=== PATIENT | female | born 1930 | race Caucasian/White ===

== ENCOUNTER 2018-06-10 17:42 | Emergency (ER) | payer OTHER ==
--- NOTE | 2018-06-10 18:15 | PDOC ---
Rapid Medical Evaluation Chief Complaint: Injury Time Seen by Provider: 06/10/18 18:11 Medical Evaluation: Allergies Allergy/AdvReac Type Severity Reaction Status Date / Time No Known Allergies Allergy Verified 10/14/13 20:56 06/10/18 18:13 I have performed a brief in-person evaluation of this patient. The patient presents with a CC of: Fall HPI: Pt is a 87 YO female who states that she accidentally fell and now has left hand, left rib, left knee and left tib/fib pain. Denies hitting her head and denies neck or back pain. Pertinent PE: Skin: Clear Lungs: Clear Heart: RRR Abd: Soft nontender MS. Pain to left right, left hand, left knee and tib/fib Neuro: Alert Psych: Age appropriate. I have ordered the following: xray on the above. The patient will proceed to main ED for further evaluation. Discharge Disposition - Diagnosis Pain - Referrals - Patient Instructions - Post Discharge Activity
[2018-06-10 18:18] VITALS: BMI 39.6
--- NOTE | 2018-06-10 19:29 | PDOC ---
History of Present Illness - General Chief Complaint: Injury Stated Complaint: FALL/INJURY Time Seen by Provider: 06/10/18 18:11 - History of Present Illness Initial Comments: 06/10/18 19:28 Ms. Christian is an 87 yo female w/ pmh of COPD, HLD, and HTN who presents s/p fall earlier today. Patient currently complaining of left hand, rib, knee, and tib/fib pain. Patient reports she got out of the car and attempted to use a sign to leverage herself forward however did not realized it was not secured in place. She fell backwards into still parked car on her left side. Denies hitting her head or any LOC. The patient denies chest pain, shortness of breath, headache and dizziness. Denies fever, chills, nausea, vomit, diarrhea and constipation. Denies dysuria, frequency, urgency and hematuria. Past History - Past Medical History Allergies/Adverse Reactions: Allergies Allergy/AdvReac Type Severity Reaction Status Date / Time No Known Allergies Allergy Verified 06/10/18 18:12 Home Medications: Ambulatory Orders Amlodipine Besylate [Norvasc -] 5 mg PO DAILY 10/14/13 Atorvastatin Ca [Lipitor] 10 mg PO HS 10/14/13 Albuterol 2.5/Ipratropium 0.5 [Duoneb -] 1 [facility] QIDR #0 vial 10/22/13 Aspirin [ASA -] 81 mg PO DAILY #0 tab.chew 10/22/13 Docusate Sodium [Colace -] 100 mg PO BID #0 capsule 10/22/13 Sennosides [Senna -] 5 tab PO DAILY #0 tablet 10/22/13 COPD: Yes HTN: Yes - Surgical History Abdominal Surgery: Yes (HERNIA REPAIR) - Immunization History Immunization Up to Date: Yes - Suicide/Smoking/Psychosocial Hx Smoking History: Never smoked Have you smoked in the past 12 months: No Hx Alcohol Use: No Drug/Substance Use Hx: No Substance Use Type: None Review of Systems - Review of Systems Comments:: 06/10/18 20:14 GENERAL/CONSTITUTIONAL: No fever or chills. No weakness. HEAD, EYES, EARS, NOSE AND THROAT: No change in vision. No ear pain or discharge. No sore throat. CARDIOVASCULAR: No chest pain or shortness of breath RESPIRATORY: No cough, wheezing, or hemoptysis. GASTROINTESTINAL: No nausea, vomiting, diarrhea or constipation. GENITOURINARY: No dysuria, frequency, or change in urination. MUSCULOSKELETAL: +MSK pain as described. SKIN: No rash NEUROLOGIC: No headache, vertigo, loss of consciousness, or change in strength/ sensation. ENDOCRINE: No increased thirst. No abnormal weight change HEMATOLOGIC/LYMPHATIC: No anemia, easy bleeding, or history of blood clots. ALLERGIC/IMMUNOLOGIC: No hives or skin allergy. *Physical Exam - Vital Signs Last Vital Signs Temp Pulse Resp BP Pulse Ox 98.6 F 93 H 19 168/66 96 06/10/18 18:12 06/10/18 18:12 06/10/18 18:12 06/10/18 18:12 06/10/18 18:12 - Physical Exam Comments: 06/10/18 20:14 GENERAL: Awake, alert, and fully oriented, in no acute distress HEAD: No signs of trauma, normocephalic, atraumatic EYES: PERRLA, EOMI, sclera anicteric, conjunctiva clear ENT: Auricles normal inspection, hearing grossly normal, nares patent, oropharynx clear without exudates. Moist mucosa NECK: Normal ROM, supple, no lymphadenopathy, JVD, or masses LUNGS: No distress, speaks full sentences, clear to auscultation bilaterally HEART: Regular rate and rhythm, normal S1 and S2, no murmurs, rubs or gallops, peripheral pulses normal and equal bilaterally. ABDOMEN: Soft, nontender, normoactive bowel sounds. No guarding, no rebound. No masses EXTREMITIES: +TTP of Left knee and left outside ribs. Moderate swelling noted to left knee. No deformities appreciated. Normal range of motion, normal strength. No clubbing or cyanosis. NEUROLOGICAL: Cranial nerves II through XII grossly intact. Normal speech, normal gait, no focal sensorimotor deficits SKIN: Warm, Dry, normal turgor, no rashes or lesions noted. Moderate Sedation - Procedure Monitoring Vital Signs: Procedure Monitoring Vital Signs Temperature 98.6 F 06/10/18 18:12 Pulse Rate 93 H 06/10/18 18:12 Respiratory Rate 19 06/10/18 18:12 Blood Pressure 168/66 06/10/18 18:12 O2 Sat by Pulse Oximetry (%) 96 06/10/18 18:12 Medical Decision Making - Medical Decision Making 06/10/18 20:29 Ms. Christian is an 87 yo female w/ pmh as described who presents for evaluation s /p fall as described earlier today. Patient currently awake and oriented. Received XR's of painful extremities and requested tylenol for pain only (given) . Discussed with patient that Head / C-spine CT's would be beneficial for ruling out further acute process. Patient refused any/all CT scan at this time. Given history confirmed by family who is with her no concern for contributing factors to fall as patient remained alert and oriented throughout encounter and fall was purely mechanical. Patient currently resting comfortably and would like to go home. *DC/Admit/Observation/Transfer Diagnosis at time of Disposition: Pain - Referrals Referrals: Jonh Anna MD [Primary Care Provider] - - Patient Instructions Printed Discharge Instructions: How to Prevent Falls Additional Instructions: You were evaluated today in the emergency room after your fall. We took x-rays of your injured extremities and no concerning findings were found at this time. We discussed Head CT for further evaluation however you elected to decline further testing. Please follow-up with primary care provider in 1-2 days for further evaluation. Return to ER if any increase in pain, fever, chills, altered mental status, or other concerning symptoms. We hope you feel better soon! - Post Discharge Activity
[2018-06-10] MEDS ORDERED: ACETAMINOPHEN 500 MG TABLET (FP) PO ONE (19:51)
[2018-06-10] MEDS ORDERED: ACETAMINOPHEN 325 MG TABLET (FP) ONE (20:06)
[2018-06-10 21:27] VITALS: BP 164/78; PULSE 97; TEMP 97.7
--- NOTE | 2018-06-10 21:28 | PDOC ---
Attending Attestation - Resident Resident Name: Fidel Allen - ED Attending Attestation I have performed the following: I have examined & evaluated the patient, The case was reviewed & discussed with the resident, I agree w/resident's findings & plan, Exceptions are as noted - HPI HPI: 06/10/18 21:21 87yo F hx COPD, HLD, and HTN presents to the ED after a fall. Pt was getting out of her daughter's vehicle and climbing up the curb. She reached for a post she thought was stationary but wasn't and fell onto her L ribs, L hand and L knee, striking them on the curb. She reports previous pain over her ribs and hand has significantly improved with tylenol. Denies head strike or LOC. Denies other injuries. Has no pain when taking a deep breath. Denies CP, SOB, fevers, chills, dizziness, abd pain, N/V/D, focal weakness or numbness, head/neck pain. Pt takes baby aspirin daily. - Physicial Exam PE: 06/10/18 21:24 GENERAL: Awake, alert, and fully oriented, in no acute distress. Ambulating around the ED with steady gait asking to go home HEAD: No signs of trauma EYES: PERRLA, EOMI, sclera anicteric, conjunctiva clear ENT: Auricles normal inspection, slightly hearing impaired, nares patent, oropharynx clear without exudates. Moist mucosa NECK: Normal ROM, supple, no lymphadenopathy, JVD, or masses LUNGS: Breath sounds equal, clear to auscultation bilaterally. No wheezes, and no crackles. L anterior 8-9th rib with ttp, no crepitus or deformity HEART: Regular rate and rhythm, normal S1 and S2, no murmurs, rubs or gallops ABDOMEN: Soft, nontender, normoactive bowel sounds. No guarding, no rebound. No masses EXTREMITIES: L hand with ttp over distal 4th metacarpal bone on dorsal aspect with overlying 1cm hematoma. FROM, normal strength and sensation in LUE. 2+ pulses L knee with edema and hematoma inferior to patella. Negative lachmanns. No bony ttp. 2+ peripheral pulses. NEUROLOGICAL: Normal speech, cranial nerves intact, 5/5 strength in all 4 extremities, normal sensation to light touch in all 4 extremities, normal cerebellar exam, antalgic but steady gait, normal tone BACK: no midline cervical, thoracic, or lumbar ttp SKIN: Warm, Dry, normal turgor, no rashes or lesions noted. Very superficial abrasion over L inferior knee - Medical Decision Making 06/10/18 21:28 87yo F presents to the ED with L rib, knee, and hand pain after mechanical fall Feels much better with tylenol and wishes to go home DEclines tdap, states she had in last 10yrs X-rays of hand, ribs, knee, tib-fib done but reads are pending Pt does not wish to wait for reads, wants us to call her if films are positive. Offered to put pt in stretcher or give more pain meds but she states she wants to go home to tend to her . Will f/u with Dr. Tripp in 1-2 days Daughter and pt given strict return precautions, especially if rib pain is causing difficulty breathing. I discussed the physical exam findings, ancillary test results and final diagnoses with the patient. I answered all of the patient's questions. The patient was satisfied with the care received and felt comfortable with the discharge plan and treatment plan. The patient will call their primary care physician within 24 hours to arrange follow-up and will return to the Emergency Department with any new, persistent or worsening symptoms. 06/10/18 23:38 XRay negative per imaging [employer]
== END 2018-06-10 22:21 | disposition home or self-care (01) ==
LOC: JER 17:42
DX: R52 Pain, unspecified (principal); W18.39XA Other fall on same level, initial encounter; Y93.89 Activity, other specified; Y92.89 Other specified places as the place of occurrence of the external cause; J44.9 Chronic obstructive pulmonary disease, unspecified; E78.5 Hyperlipidemia, unspecified; I10 Essential (primary) hypertension
CPT/HCPCS: 71101-TC-FY; 73130-TC-LT-FY; 73564-TC-LT-FY; 73590-TC-LT-FY; 99283-25